=== PATIENT | female | born 1950 | race Caucasian/White ===

== ENCOUNTER 2022-01-14 09:14 | Observation (INO) ==
--- NOTE | 2021-12-20 10:28 | PAT Medication Instructions ---
Medication Instructions Date of Service December 20, 2021 Home Medications memantine 10 mg tablet 10 mg PO 2000 acetaminophen 325 mg capsule 325 mg PO QID PRN aspirin 81 mg tablet,delayed release (Adult Low Dose Aspirin) 81 mg PO 0800 azelastine 137 mcg (0.1 %) nasal spray aerosol 2 spray INTNAS 1999 biotin 2,500 mcg capsule 2,500 mcg PO 0800 cholecalciferol (vitamin D3) 50 mcg (2,000 unit) capsule 50 mcg PO 0800 cyanocobalamin (vitamin B-12) 1,000 mcg sublingual tablet 1,000 mcg SUBLINGUAL 0800 diclofenac sodium 1 % topical gel 4 g TOPICAL BID donepezil 10 mg tablet 10 mg PO 0800 fluticasone propionate 50 mcg/actuation nasal spray,suspension 1 spray INTRANASAL 0800 levothyroxine 100 mcg tablet 100 mcg PO 0630 albuterol sulfate 90 mcg/actuation aerosol inhaler (Ventolin HFA) 1 inh INHALATION QID PRN albuterol sulfate 90 mcg/actuation aerosol inhaler (Ventolin HFA) 2 puff INHALATION BID calcium carbonate 600 mg-vitamin D3 5 mcg (200 unit) tablet 1 tab PO 0800 citalopram 20 mg tablet (Celexa) 20 mg PO 0800 levocetirizine 5 mg tablet 5 mg PO 2000 pantoprazole 40 mg tablet,delayed release (Protonix) 40 mg PO 0730 STOP taking 24 hours before surgery diclofenac sodium 1 % topical gel 4 g TOPICAL BID DO NOT take the morning of surgery biotin 2,500 mcg capsule 2,500 mcg PO 0800 cholecalciferol (vitamin D3) 50 mcg (2,000 unit) capsule 50 mcg PO 0800 cyanocobalamin (vitamin B-12) 1,000 mcg sublingual tablet 1,000 mcg SUBLINGUAL 0800 calcium carbonate 600 mg-vitamin D3 5 mcg (200 unit) tablet 1 tab PO 0800 Take morning of surgery With a small sip of water, OTHERWISE NOTHING TO EAT OR DRINK AFTER MIDNIGHT: acetaminophen 325 mg capsule 325 mg PO QID PRN (if needed) aspirin 81 mg tablet,delayed release (Adult Low Dose Aspirin) 81 mg PO 0800 (continue as normal unless told otherwise by surgeon) donepezil 10 mg tablet 10 mg PO 0800 fluticasone propionate 50 mcg/actuation nasal spray,suspension 1 spray INTRANASAL 0800 levothyroxine 100 mcg tablet 100 mcg PO 0630 albuterol sulfate 90 mcg/actuation aerosol inhaler (Ventolin HFA) 1 inh INHALATION QID PRN (if needed) albuterol sulfate 90 mcg/actuation aerosol inhaler (Ventolin HFA) 2 puff INHALATION BID citalopram 20 mg tablet (Celexa) 20 mg PO 0800 pantoprazole 40 mg tablet,delayed release (Protonix) 40 mg PO 0730 Use rescue inhaler if needed; please bring with you to hospital day of surgery if possible Take evening before surgery memantine 10 mg tablet 10 mg PO 1999 acetaminophen 325 mg capsule 325 mg PO QID PRN (if needed) azelastine 137 mcg (0.1 %) nasal spray aerosol 2 spray INTNAS 1999 albuterol sulfate 90 mcg/actuation aerosol inhaler (Ventolin HFA) 1 inh INHALATION QID PRN (if needed) albuterol sulfate 90 mcg/actuation aerosol inhaler (Ventolin HFA) 2 puff INHALATION BID levocetirizine 5 mg tablet 5 mg PO 1999 Other Notes If you have any questions please call us at [phone] or [phone] or [phone] or [phone]
--- NOTE | 2021-12-20 12:07 | Anesthesiology Consultation ---
Date of Service December 20, 2021 Assessment & Plan (1) Encounter for pre-operative examination: - chronic microaspiration: follows with [facility] as below. - pulm 09/29/21 [facility]: "...Chronic cough: Cough likely multifactorial possibly related to upper airway cough syndrome and cough variant asthma. Symptoms are difficult to ascertain given her dementia and memory issues...did not cough during the visit...not had any ER visits or need for steroid tapers since I last saw her...continue with her current dosing of Breo and as needed albuterol. Continue fluticasone nasal spray for allergic rhinitis. Continue pantoprazole for GERD...Abnormal CT scan, chest: Multi lobar tree-in-bud opacities stable except for a new area in the right lower lobe...suspect these findings are likely related to chronic micro-aspiration. Aspiration precautions encouraged. We will repeat a CT chest in 6 months. Prior bronchoscopy without evidence of nontuberculous Mycobacterium infection. Raspy voice: Trial off Breo Ellipta for 3 days as inhaled corticosteroids can occasionally weaken voice. Encouraged rinsing her mouth after using all inhalers. Consider ENT evaluation if symptoms persist..." - Case discussed with Dr. Montaño who advised pt is acceptable risk to proceed with surgery and does not need additional evaluation or testing prior to surgery. - COVID screening: Per assessment on 12/20/2021: Travel screen negative, no known COVID-19 positive contacts or current COVID-19 related symptoms in past 2 weeks. Pt vaccinated. Surgeon arranging preop COVID testing, scheduled 01/12/2022. Awaiting results. Chart Review Chart Review: Acceptable Risk for Surgery and Patient seen in Pre Admission Testing Teaching & Discussion Pre-Anesthesia Teaching/Discussion Notes: Instructed NPO after midnight before surgery, except medications with 15 cc of water. Medication instructions provided according to the PAT guidelines. History Surgery Operation Date: 01/14/22 07:00 Proposed Procedures p Right Total Knee Arthroplasty - Ruy Lam DO Height/Weight Height: 5 ft 5 in Weight: 71.9 kg Allergies Allergy/AdvReac Type Severity Reaction Status Date / Time No Known Allergies Allergy Verified 12/20/21 07:30 Medications Home Medications Medication Instructions Recorded Confirmed Last Taken memantine 10 mg tablet 10 mg PO 199903/10/20 12/20/21 07/21/21 acetaminophen 325 mg capsule 325 mg PO QID PRN 04/01/21 12/20/21 07/21/21 aspirin 81 mg tablet,delayed [place] [address]04/01/21 12/20/21 07/21/21 release (Adult Low Dose Aspirin) azelastine 137 mcg (0.1 %) nasal 2 spray INTNAS 199907/13/21 12/20/21 07/21/21 spray aerosol biotin 2,500 mcg capsule 2,[place] [address]/13/21 12/20/21 07/13/21 cholecalciferol (vitamin D3) 50 [place] [address]07/13/21 12/20/21 07/21/21 mcg (2,000 unit) capsule cyanocobalamin (vitamin B-12) 1,000 mcg SUBLINGUAL 79907/13/21 12/20/21 07/21/21 1,000 mcg sublingual tablet diclofenac sodium 1 % topical gel 4 g TOPICAL BID 07/13/21 12/20/21 07/20/21 donepezil 10 mg tablet [place] 79907/13/21 12/20/21 07/21/21 fluticasone propionate 50 1 spray INTRANASAL 79907/13/21 12/20/21 07/21/21 mcg/actuation nasal spray,suspension levothyroxine 100 mcg tablet [place] [address]/13/21 12/20/21 07/21/21 albuterol sulfate 90 mcg/actuation 1 inh INHALATION QID PRN 12/20/21 12/20/21 Unknown aerosol inhaler (Ventolin HFA) albuterol sulfate 90 mcg/actuation 2 puff INHALATION BID 12/20/21 12/20/21 Unknown aerosol inhaler (Ventolin HFA) calcium carbonate 600 mg-vit[place] [address]12/20/21 12/20/21 Unknown D3 5 mcg (200 unit) tablet citalopram 20 mg tablet (Celexa) 20 [place] PO 79912/20/21 12/20/21 Unknown levocetirizine 5 mg tablet 5 mg PO 199912/20/21 12/20/21 Unknown pantoprazole 40 mg tablet,delayed 40 [place] [address]12/20/21 12/20/21 Unknown release (Protonix) Past Medical History Medical History (Updated 12/20/21 @ 12:29 by Sandrine Jackson PA-C) Abnormal CT scan, chest 09/03/21: Scattered multilobar bilateral distribution of relapsing and remitting subsegmental tree-in-bud nodules are redemonstrated. A small clu ster of nodules in the right lower lobe is new from prior measuring up to 7 mm. Decreased mucus plugging of the right middle lobe. Findings are again suggestive of a chronic infectious or inflammatory pneumonitis/bronchiolitis such as nontuberculosis mycobacterium-monitoring by [facility] Chronic cough follows with [facility] Dementia vascular suspected by neurologist. alert and oriented per son. short term memory loss. Depression Esophageal dysmotility Falls multiple. uses walker to ambulate currenty GERD (gastroesophageal reflux disease) Hx of thyroid cancer Hypothyroidism Lung nodule Osteopenia DEXA 06/01/2020- T score( - 2.4) Raspy voice Sleep apnea hx - no machine currently. Patient denies h/o stroke, seizures, heart attack, heart failure, DM, HTN, blood clots or blood transfusions. Exercise / Class Metabolic Activity III < 4 Walking/Shop/Light housework (ambulates with rolling walker, ) Past Family History Family History Other No family history of adverse response to anesthesia Denies family history of Ovarian cancer Prostate cancer Myocardial infarction Breast cancer Lung cancer Colorectal cancer Past Surgical History Surgical History History of bronchoscopy History of colonoscopy History of esophagogastroduodenoscopy (EGD) History of facelift S/P hysterectomy S/P thyroidectomy total Past Anesthesia History No Hx of Anesthesia Complications and No Family Hx of Anesthesia Complications History of PONV No Hx of PONV and No Hx of Motion Sickness Social History Smoking Status: Never smoker Do You Dip or Chew Tobacco: No Hx Alcohol Use: Yes (hx heavy alcohol use "many years ago"-denies current use) Hx Substance Use: No substance use type: does not use Review of Systems Patient denies chest pain, shortness of breath, dyspnea on exertion, reflux, fever, chills, wheezing, or palpitations. Physical Exam Vital Signs Vitals BP 112/72 P 61 TEMP 98.7 SP02 98% on RA RESP 17 Physical Full cervical extension range of motion without pain TMD 3.5 finger breaths Mallampati Score 3 Dentition: intact, denies missing, chipped or loose teeth; denies Lungs: normal respiratory effort. Clear throughout to auscultation, no adventitious breath sounds Cardiac: regular rate and rhythm, no murmurs noted Carotid arteries: negative bruit bilat Lab Results Anesthesia Preop Results Results Anesthesia Widget: WBC 8.74 K/uL (4.8-10.8) 12/20/21 Hgb 12.9 g/dL (12.0-16.0) 12/20/21 Hct 40.1 % (37-47) 12/20/21 Plt 374 K/uL (130-400) 12/20/21 Na 140 mmol/L (136-145) 12/08/21 K 3.6 mmol/L (3.5-5.1) 12/08/21 Cl 105 mmol/L (98-107) 12/08/21 CO2 25 mmol/L (21-32) 12/08/21 BUN 13 mg/dl (6-23) 12/08/21 Creat 1.00 mg/dl (0.6-1.2) 12/08/21 Glucose Level 111 mg/dl (70-99(Fasting)) H 12/08/21 PT 10.8 Seconds (9.0-12.0) 12/20/21 PTT 25.7 Seconds (21.0-31.0) 12/20/21 INR 1.0 (0.9-1.1) 12/20/21 TSH 0.541 uIu/ml (0.300-4.500) 12/08/21 Blood Type O Positive 12/20/21 Antibody Screen NEGATIVE 12/20/21 Testing Electrocardiogram Date: 12/20/[address] 09/03/21 IMPRESSION: 1. Scattered multilobar bilateral distribution of relapsing and remitting subsegmental tree-in-bud nodules are redemonstrated. A small cluster of nodules in the right lower lobe is new from prior measuring up to 7 mm. Decreased mucus plugging of the right middle lobe. Findings are again suggestive of a chronic infectious or inflammatory pneumonitis/bronchiolitis such as nontuberculosis mycobacterium. 2. Prior granulomatous disease. 3. No thoracic lymphadenopathy. 4. Tiny hiatal hernia.
--- NOTE | 2022-01-13 07:36 | History & Physical Report ---
Date of Service January 13, 2022 Assessment & Plan (1) Primary osteoarthritis of right knee: We will proceed with a right total knee arthroplasty. Postoperatively she will be started on aspirin for DVT prophylaxis and kept overnight in the hospital for postoperative medical management. She plans to go to [place] at discharge. (2) Right knee DJD: History of Present Illness Chief Complaint: Osteoarthritis of the right knee . Primary Care Provider: [place] [facility] Dee Dee is a pleasant 71-year-old female who has been dealing with dementia. Her son takes good care of her. She currently lives at [place]. She has been dealing with chronic increasing right knee pain. She is downgraded to a wheeled walker because of it. I have tried extensive conservative treatment including multiple cortisone injections and recent viscosupplementation. Unfortunately, she is still struggling with her knee. After failing conservative treatment, and after long discussions with the family, she has elected to proceed with a right total knee arthroplasty. Allergies Allergy/AdvReac Type Severity Reaction Status Date / Time No Known Allergies Allergy Verified 12/20/21 07:30 Home Medications Medication Instructions Recorded Confirmed Type memantine 10 mg tablet 10 mg PO 199903/10/20 12/20/21 History acetaminophen 325 mg capsule 325 mg PO QID PRN 04/01/21 12/20/21 History aspirin 81 mg tablet,delayed 81 [place] 79904/01/21 12/20/21 History release (Adult Low Dose Aspirin) azelastine 137 mcg (0.1 %) nasal 2 spray INTNAS 199907/13/21 12/20/21 History spray aerosol biotin 2,500 mcg capsule 2,[place] [address]07/13/21 12/20/21 History cholecalciferol (vitamin D3) 50 [place] 79907/13/21 12/20/21 History mcg (2,000 unit) capsule cyanocobalamin (vitamin B-12) 1,000 mcg SUBLINGUAL 79907/13/21 12/20/21 History 1,000 mcg sublingual tablet diclofenac sodium 1 % topical gel 4 g TOPICAL BID 07/13/21 12/20/21 History donepezil 10 mg tablet 10 [place] 79907/13/21 12/20/21 History fluticasone propionate 50 1 spray INTRANASAL 79907/13/21 12/20/21 History mcg/actuation nasal spray,suspension levothyroxine 100 mcg tablet [place] [address]/13/21 12/20/21 History albuterol sulfate 90 mcg/actuation 1 inh INHALATION QID PRN 12/20/21 12/20/21 History aerosol inhaler (Ventolin HFA) albuterol sulfate 90 mcg/actuation 2 puff INHALATION BID 12/20/21 12/20/21 History aerosol inhaler (Ventolin HFA) calcium carbonate 600 mg-vitamin 1 [place] 79912/20/21 12/20/21 History D3 5 mcg (200 unit) tablet citalopram 20 mg tablet (Celexa) 20 [place] PO 79912/20/21 12/20/21 History levocetirizine 5 mg tablet 5 mg PO 199912/20/21 12/20/21 History pantoprazole 40 mg tablet,delayed 40 [place] 72912/20/21 12/20/21 History release (Protonix) Past Med/Surg History Medical History Abnormal CT scan, chest 09/03/21: Scattered multilobar bilateral distribution of relapsing and remitting subsegmental tree-in-bud nodules are redemonstrated. A small cluster of nodules in the right lower lobe is new from prior measuring up to 7 mm. Decreased mucus plugging of the right middle lobe. Findings are again suggestive of a chronic infectious or inflammatory pneumonitis/bronchiolitis such as nontuberculosis mycobacterium-monitoring by [facility] Chronic cough follows with [facility] Dementia vascular suspected by neurologist. alert and oriented per son. short term memory loss. Depression Esophageal dysmotility Falls multiple. uses walker to ambulate currenty GERD (gastroesophageal reflux disease) Hx of thyroid cancer Hypothyroidism Lung nodule Osteopenia DEXA 06/01/2020- T score( - 2.4) Raspy voice Sleep apnea hx - no machine currently. Surgical History History of bronchoscopy History of colonoscopy History of esophagogastroduodenoscopy (EGD) History of facelift S/P hysterectomy S/P thyroidectomy total Family History Other No family history of adverse response to anesthesia Denies family history of Ovarian cancer Prostate cancer Myocardial infarction Breast cancer Lung cancer Colorectal cancer Social History Smoking Status: Never smoker Second Hand Exposure: Yes (hx); Hx Alcohol Use: Yes (hx heavy alcohol use "many years ago"-denies current use) Hx Substance Use: No Preferred Language: Russian Communication Ability: Effective Visual Impairment: No Limitations Hearing Ability: Normal Project Eng Required: No Beliefs That Will Affect Care: None marital status: Single Current Living Situation: Personal Care Facility Current Living Situation Comment: [facility] 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 Physical Exam On physical examination the right knee, she has slight varus deformity. She has range of motion of 0 to 120 degrees. No effusion. . Constitutional WD/WN, vitals as above Eyes PERRL, conjunctivae normal, anicteric sclerae ENMT external ear and nose normal, oropharynx normal Neck trachea midline, no thyromegaly Respiratory normal respiratory effort Cardiovascular RRR, no murmur, no edema Gastrointestinal (Abdomen) normal bowel sounds, soft, nontender, no hepatosplenomegaly Psychiatric A+Ox3, euthymic affect Results & Data Results & Data Laboratory Results . Diagnostic Findings X-rays of the right knee show advanced osteoarthritis with joint space narrowing, osteophyte formation, and [id number] articulation . PG Care Time/CCT Total # of Minutes Spent Total Time Spent with Patient: Total time spent is greater than 50% in coordination of care (as documented) at patient's floor/unit and/or counseling patient: Coding Level of Care Code None Diagnoses Primary osteoarthritis of right knee M17.11 Right knee DJD M17.11
[~2022-01-14 09:14] MED LIST: ACETAMINOPHEN 500 MG TAB PO SCH; BUPIVACAINE 0.5 % 5 MG/1 ML PF 10ML VIAL ONE; FAMOTIDINE 20 MG TAB PO SCH; GABAPENTIN 300 MG CAP PO SCH; Ketorolac (*for OR use only*) 30 MG, dexAMETHasone 4 MG, KETAMINE HCL (**OR use only) 1... INFIL SCH; LR 500ML BOLUS, THEN 15ML/HR IV SCH; LR 60ML/HR IV SCH; ROPIVACAINE 0.5% 5 MG/ML 30 ML VIAL ONE; TRANEXAMIC ACID 1,000 MG **IV Intra-op IV SCH; TRANEXAMIC ACID 1,000 MG **IV Pre-op IV SCH; ceFAZolin 1000MG 1,000 MG/7.5 ML SYR IV SCH; dexAMETHasone 4 MG TAB PO SCH
--- NOTE | 2022-01-14 10:27 | History & Physical Bridge Note ---
Date of Service January 14, 2022 History & Physical Bridge Note I have examined the patient, reviewed the History & Physical and in the interval since the performance of the History & Physical I have noted the following changes of clinical significance: no changes noted
[2022-01-14] MEDS ORDERED: fentaNYL citrate 100 MCG/2 ML VIAL IV PRN (10:42)
[2022-01-14] MEDS ORDERED: ePHEDrine sulfate 50 MG/ML AMP IV PRN (10:42)
[2022-01-14] MEDS ORDERED: ONDANSETRON INJ 2 MG/ML 2 ML VIAL IV PRN ×2 (10:42→14:45)
[2022-01-14] MEDS ORDERED: ATROPINE SULFATE 0.1 MG/ML 10ML SYR IV PRN (10:42)
[2022-01-14] MEDS ORDERED: ORTHO JOINT ANESTHETIC ONE (10:55)
[2022-01-14] MEDS ORDERED: fentaNYL citrate 100 MCG/2 ML VIAL ONE (11:04)
[2022-01-14] MEDS ORDERED: ONDANSETRON INJ 2 MG/ML 2 ML VIAL ONE (11:04)
[2022-01-14] MEDS ORDERED: PROPOFOL IV EMULSION 10 MG/ML 20 ML VIAL IV ONE ×2 (11:04→11:05)
--- NOTE | 2022-01-14 12:44 | Operative Report ---
PG Post Operative Report Pre & Post Diagnosis Operation Date: 01/14/22 11:40 Pre-Op Diagnosis: Right Knee Degenerative Joint Disease Post-Op Diagnosis: Right Knee Degenerative Joint Disease I identified the patient and participated in the time-out.: Yes Procedure Operation Date: 01/14/22 11:40 Actual Procedures p Right Total Knee Arthroplasty(Right) - Ruy Lam DO Surgeon Ruy Lam DO Custodian Blood Bank Ruy De La Cruz PAC Estimated Blood Loss 20 Findings Consistent with Post-Op Diagnosis Specimens Right femoral and tibial bone Complications none Disposition Disposition: Recovery Room Description of Procedure Implants used: I used a Rebeca Persona total knee arthroplasty system with a size 7 narrow femur, D tibia, 28 oval patella, and a size 10 medial congruent polyethylene bearing. All components were cemented in place with Biomet cement. Sun arrived [facility] for the above procedure. She was seen in the preoperative holding area and the operative extremity was identified and signed. She was given a preoperative antibiotic, TXA, a spinal anesthetic and an adductor nerve block. She was taken back to the operating room and laid on the table in supine position. She was given basic sedation. The operative knee was then prepped and draped in sterile fashion. A timeout was done, and the patient and the operative extremity was properly identified. A midline incision was made directly over the patella. Dissection was taken down to the extensor mechanism. A subvastus arthrotomy was used. The medial retinaculum was released and the fat pad was mostly excised. The knee was flexed and the ACL, PCL, and meniscus were removed. A drill was sent down the center of the femoral canal followed by an intramedullary thalia. Off that thalia a distal femoral cutting block was placed. 9 mm was resected off the distal femur at 5 of valgus. A posterior referencing AP sizing guide was then placed on the distal femur. The femur measured to be a size 7. 2 drill holes were placed in 3 of external rotation. A 4-in-1 cutting block was then impacted into place. Anterior, posterior, and chamfer cuts were then made. The proximal tibia was then exposed. An external tibial alignment guide was placed. A tibial cut guide was then anchored in place and the proximal tibia was then resected. The posterior aspect of the knee was then opened up and any additional meniscus fragments and osteophytes were removed. The tibia measured to be a size D. The tibial plate was then placed in the appropriate rotation and the tibia was drilled and punched. Trial components were then placed. I used a size 10 medial congruent polyethylene insert. The knee was brought through a full range of motion and felt to be stable. The peg holes for the femoral component were then drilled. The patella was then everted and 9 mm was resected off the posterior aspect of the patella. The patella measured to be a size 28 oval. 3 peg holes were then drilled. A trial patella was placed. The knee was once again brought through a full range of motion and felt to be stable. Trial components were then removed. The surrounding soft tissues were injected with 100 cc of an orthopedic pain control cocktail. All components were then cemented into place with Biomet cement. The final polyethylene insert was then snapped into place. Once cement was dry the tourniquet was deflated. Hemostasis was obtained. A dilute betadyne lavage was then done for 3 minutes. The joint was then irrigated with normal saline solution. The subvastus arthrotomy was then closed with #1 Vicryl suture. The skin was closed with 2-0 Vicryl, 3-0V lock suture, and rosana. A soft compressive dressing was placed. She was then transferred to a hospital bed and taken to the postanesthesia care unit in stable condition. She tolerated the procedure well. Ruy De La Cruz PA-C, was present for the entire procedure. He was critical for patient positioning, prepping, draping, retraction exposure, wound closure and application of sterile dressing. I attest to the content of the Intraoperative Record and any orders documented therein. Any exceptions are noted below.
--- NOTE | 2022-01-14 13:44 | XRay Report ---
RIGHT KNEE 2 VIEWS History: Right total knee arthroplasty. Degenerative arthritis. Postop. FINDINGS: The patient is status post a right total knee arthroplasty. The hardware is intact. No frac ture or dislocation. Skin rosana are in place. IMPRESSION: Right total knee arthroplasty. No evidence for hardware complication. ACT 112: Negative or not required by law. Electronically signed by: Solis Marquez M.D. 01/14/2022 1:42 PM
--- NOTE | 2022-01-14 14:20 | Anesthesiology Progress Note ---
Date of Service January 14, 2022 Anesthesia Post Procedure Vital Signs Vital Signs: Temp Pulse Pulse Resp BP Pulse Ox 01/14/22 14:10 60 20 142/71 H 96 01/14/22 14:00 57 L 12 133/68 97 01/14/22 13:50 57 L 14 127/64 97 01/14/22 13:40 57 L 13 130/66 96 01/14/22 13:30 58 L 14 127/65 97 01/14/22 13:20 58 L 20 115/65 96 01/14/22 13:11 97.0 F L 60 14 123/62 95 01/14/22 09:55 98.2 F 64 16 140/73 95 Transfer of Care Handoff Completed per policy Notes Mental Status: alert / awake / arousable and participated in evaluation Patient Amnestic to Procedure: Yes Nausea / Vomiting: adequately controlled Pain: adequately controlled Airway Patency, RR, SpO2: stable & adequate BP & HR: stable & adequate Hydration State: stable & adequate Neuraxial Anesthesia: was administered and sensory block is resolving Anesthetic Complications: no major complications apparent and Pt Satisfied with anesthetic care
[2022-01-14] MEDS ORDERED: bisacodyL 10 MG SUPP PR PRN (14:45)
[2022-01-14] MEDS ORDERED: HYDROmorphone INJ 0.5 MG/0.5 ML SYR IV PRN (14:45)
[2022-01-14] MEDS ORDERED: ALBUTEROL HFA 8 GM INHALER INH PRN (14:45)
[2022-01-14] MEDS ORDERED: METOCLOPRAMIDE HCL INJ 5 MG/ML 2 ML VIAL IV PRN (14:45)
[2022-01-14] MEDS ORDERED: NALOXONE HCL 0.4 MG/1 ML VIAL/CARP IV PRN (14:45)
[2022-01-14] MEDS ORDERED: MAGNESIUM HYDROXIDE SUSP 30 ML UDC PO PRN (14:45)
[2022-01-14] MEDS: SODIUM CHLORIDE 0.9% 1000ML 1,000 ML IV SCH (15:57)
[2022-01-14] MEDS: KETOROLAC TROMETHAMINE 15 MG/ML VIAL IV SCH ×2 (15:57→20:55)
[2022-01-14] MEDS: ACETAMINOPHEN 500 MG TAB PO SCH ×2 (15:57→22:17)
[2022-01-14] MEDS: ceFAZolin 2000MG 2,000 MG/15 ML SYR IV SCH (18:10)
[2022-01-14] MEDS: ALBUTEROL HFA 8 GM INHALER INH SCH (19:32)
[2022-01-14] MEDS: MEMANTINE HCL 10 MG TAB PO SCH (20:10)
[2022-01-14] MEDS: AZELASTINE HCL 0.1% NASAL 200 SPRAYS/27,400 MCG BTL SCH (20:10)
[2022-01-14] MEDS: DOCUSATE SODIUM 100 MG CAP PO SCH (21:55)
[2022-01-14] MEDS: SENNA 8.6 MG TAB PO SCH (21:55)
[2022-01-14] MEDS: ASPIRIN 81 MG ECTAB PO SCH (21:55)
[2022-01-15] MEDS: SODIUM CHLORIDE 0.9% 1000ML 1,000 ML IV SCH (01:16)
[2022-01-15] MEDS: KETOROLAC TROMETHAMINE 15 MG/ML VIAL IV SCH ×4 (02:31→21:02)
[2022-01-15] MEDS: ceFAZolin 2000MG 2,000 MG/15 ML SYR IV SCH (02:31)
[2022-01-15] MEDS: ACETAMINOPHEN 500 MG TAB PO SCH ×3 (06:50→21:00)
[2022-01-15] MEDS: LEVOTHYROXINE SODIUM 100 MCG TABLET PO SCH (06:50)
[2022-01-15] MEDS: ALBUTEROL HFA 8 GM INHALER INH SCH ×2 (07:44→19:32)
[2022-01-15] MEDS ORDERED: dexAMETHasone 4 MG TAB PO SCH (08:00)
--- NOTE | 2022-01-15 09:14 | Orthopedic Progress Note ---
Date of Service January 15, 2022 Assessment & Plan (1) Status post right knee replacement: Plan on discharge to [place] Continue with YASMANY stockings and aspirin BID Ambulation as tolerated Follow up in office 2-3 weeks post op for suture removal and evaluation Subjective Dee Dee is a 71 y/o female POD#1 for right total knee arthroplasty. She has minimal pain, comfortable at bedside. She has been up and ambulatory to the bathroom with the use of a walker. She continues to wear YASMANY stockings as directed. We will plan on discharge to [facility] today. Review of Systems All systems reviewed & are unremarkable except as noted in HPI & below. Physical Exam Incision clean and dry. No drainaige. Neurovascularly intact. Results & Data Results & Data Laboratory Results . Diagnostic Findings . PG Care Time/CCT Total # of Minutes Spent Total Time Spent with Patient: Total time spent is greater than 50% in coordination of care (as documented) at patient's floor/unit and/or counseling patient: Coding Level of Care Code 98712 Post Operative Follow-Up Diagnoses Status post right knee replacement Z96.651
[2022-01-15] MEDS: CITALOPRAM 20 MG TAB PO SCH (09:53)
[2022-01-15] MEDS: PANTOprazole 40 MG TAB PO SCH (09:53)
[2022-01-15] MEDS: ASPIRIN 81 MG ECTAB PO SCH ×2 (09:54→21:01)
[2022-01-15] MEDS: DONEPEZIL HCL 10 MG TAB PO SCH (09:54)
[2022-01-15] MEDS: DOCUSATE SODIUM 100 MG CAP PO SCH ×2 (09:54→20:59)
[2022-01-15] MEDS: FLUTICASONE PROPIONATE NA SPR 16 GM BTL SCH (09:54)
[2022-01-15] MEDS: MULTIVITAMIN TAB PO SCH (09:55)
[2022-01-15] MEDS: oxyCODONE HCL IR 5 MG TAB (IMMEDIATE RELEASE) PO PRN (18:32)
[2022-01-15] MEDS: AZELASTINE HCL 0.1% NASAL 200 SPRAYS/27,400 MCG BTL SCH (20:59)
[2022-01-15] MEDS: MEMANTINE HCL 10 MG TAB PO SCH (21:00)
[2022-01-15] MEDS: SENNA 8.6 MG TAB PO SCH (21:01)
[2022-01-16] MEDS: KETOROLAC TROMETHAMINE 15 MG/ML VIAL IV SCH ×2 (02:38→07:54)
[2022-01-16] MEDS: LEVOTHYROXINE SODIUM 100 MCG TABLET PO SCH (05:35)
[2022-01-16] MEDS: ACETAMINOPHEN 500 MG TAB PO SCH ×2 (05:36→13:58)
[2022-01-16] MEDS: ALBUTEROL HFA 8 GM INHALER INH SCH (07:43)
[2022-01-16] MEDS: DONEPEZIL HCL 10 MG TAB PO SCH (07:54)
[2022-01-16] MEDS: PANTOprazole 40 MG TAB PO SCH (07:54)
[2022-01-16] MEDS: CITALOPRAM 20 MG TAB PO SCH (07:54)
[2022-01-16] MEDS: MULTIVITAMIN TAB PO SCH (07:54)
[2022-01-16] MEDS: FLUTICASONE PROPIONATE NA SPR 16 GM BTL SCH (07:55)
[2022-01-16] MEDS: ASPIRIN 81 MG ECTAB PO SCH (07:55)
[2022-01-16] MEDS: DOCUSATE SODIUM 100 MG CAP PO SCH (07:55)
[2022-01-16] MEDS: oxyCODONE HCL IR 5 MG TAB (IMMEDIATE RELEASE) PO PRN (13:58)
--- NOTE | 2022-01-16 14:25 | Orthopedic Progress Note ---
Date of Service January 16, 2022 Assessment & Plan (1) Status post right knee replacement: No issues on POD2 s/p R TKA Plan on discharge to [facility] when authorized. Continue with YASMANY stockings and aspirin BID Ambulation as tolerated Follow up in office 2-3 weeks post op for suture removal and evaluation Subjective No issues. Tired of sitting still. Nursing present - reports some memory issues at baseline. PT worked with her. No issues. Review of Systems All systems reviewed & are unremarkable except as noted in HPI & below. Physical Exam Could not remember which knee was done - though both RLE: dressing disheveled. Wound well approx, clean and dry. Spotting on abd - dry. Dressing reapplied. DNVI. Able to perform SLR with no lag while dressing. Constitutional WD/WN, vitals as above no acute distress and not intoxicated appearing Respiratory normal respiratory effort; no labored breathing Cardiovascular Extremities: normal capillary refill Results & Data Results & Data Laboratory Results . Diagnostic Findings . PG Care Time/CCT Total # of Minutes Spent Total Time Spent with Patient: Total time spent is greater than 50% in coordination of care (as documented) at patient's floor/unit and/or counseling patient: Coding Level of Care Code 58618 Post Operative Follow-Up Diagnoses Status post right knee replacement Z96.651
--- NOTE | 2022-01-17 17:21 | Discharge Summary ---
Date of Service January 17, 2022 Admission HPI (Per Admitting) Dee Dee is a pleasant 71-year-old female who has been dealing with dementia. Her son takes good care of her. She currently lives at [facility]. She has been dealing with chronic increasing right knee pain. She is downgraded to a wheeled walker because of it. I have tried extensive conservative treatment including multiple cortisone injections and recent viscosupplementation. Unfortunately, she is still struggling with her knee. After failing conservative treatment, and after long discussions with the family, she has elected to proceed with a right total knee arthroplasty. Admission Exam (Per Admitting) On physical examination the right knee, she has slight varus deformity. She has range of motion of 0 to 120 degrees. No effusion. . Principal Diagnosis Same as "Discharge Diagnosis" noted below under Discharge Instructions. Discharge Exam Could not remember which knee was done - though both RLE: dressing disheveled. Wound well approx, clean and dry. Spotting on abd - dry. Dressing reapplied. DNVI. Able to perform SLR with no lag while dressing. Discharge Data Procedures Performed Operation Date: 01/14/22 11:40 Actual Procedures p Right Total Knee Arthroplasty(Right) - Ruy Lam DO Ordered Studies 01/14/22 05:00 US - OR guided needle placemen Routine Hospital Course (1) Status post right knee replacement: On January 14, 2022 Sun arrived at [facility] and underwent a right knee replacement without complication. She had a spinal anesthetic. Postoperatively she was started on aspirin and transferred to the general orthopedic floors. Her hospital course was uneventful. On postop day #1, her v ital signs were stable and her pain was well controlled. She was able to participate well with physical therapy doing ambulation and range of motion exercises. On postop day #2, she continued to do well. She was then transferred to a rehab facility. She will follow-up with orthopedics in 2 weeks. PG Care Time/CCT Total # of Minutes Spent Total Time Spent with Patient: Total time spent is greater than 50% in coordination of care (as documented) at patient's floor/unit and/or counseling patient: Discharge Plan Discharge Items Patient Disposition: Transfer [facility] Reason For Visit: DJD Right Knee Discharge Diagnosis: Right knee replacement Activity: Per Instructions section Non-emergency contact: Surgeon Call non-emergency contact if: your wound has increased redness and your wound has increased drainage Follow-up/Referrals: Ruy Lam DO [Physician] - [facility] - Diet: Regular Addtl Attending Provider Instructions: Activity and Therapy Recommendations: * If you are using [facility] then therapy will be provided at your home until they feel you have accomplished all of your goals. * If you are using [facility] then Physical Therapy will be provided until they feel you are ready to start Outpatient Physical Therapy. * If you are not using home therapy then Outpatient Physical Therapy should start about 3-5 days from your day of surgery. Therapy will last about 6-10 weeks * It is important not to put a pillow under your knee when you are relaxing or sleeping. It is just as important to make sure you are getting your knee perfectly straight as it is to regain your knee bend. * You were shown a series of exercises in the hospital. Do these exercises three times each day including the exercises you were shown in physical therapy. * Get up and walk several times each day. For the first four weeks, try not to stand or walk for more than one hour at a time. If you do stand or walk for more than one hour, you will not hurt anything, but your leg will likely swell. * As you feel comfortable, you may change from the walker or crutches to a cane and then to independent walking. Medications: * Narcotic You will likely be sent home from the hospital with a prescription for the narcotic pain medication that worked best throughout your stay. * Aspirin Most patients will be required to take Aspirin 81mg twice a day for 6 weeks after surgery. This is obtained [id number] and a prescription is not necessary. * Other medications may be prescribed for specific circumstances. If you have any questions, please call the office at . * Resume previous home medications unless otherwise instructed TEDs/Elastic Stockings: The white elastic stockings help limit swelling and prevent blood clots from forming in your legs.~ The more you wear them, the more they work. Wear them for six weeks. Dressing Care: The dressing can be changed after physical therapy on postop day #1. Daily dry dressing changes for a few days, especially if the incision is still draining some. If the incision is not draining then you may leave the rosana open to air. If there is a little bit of drainage or if the rosana are getting stuck on your clothing then cover the incision with a dry dressing. The rosana will be removed at your 2 week follow-up appointment. Showering: You may shower 5 days from the day of surgery as long as the incision is no longer draining. You may shower with the rosana exposed. Let soapy water run over the rosana and pat them dry. Do not scrub or soak the incision. Things To Watch For: * Drainage from the incision site that occurs more than one week after your surgery. * Increased redness at the incision site. * Fever above 102 degrees Fahrenheit. * Unusual chest pain or shortness of breath. * Call [facility] at with any of the above problems Follow-Up Visit: Follow-up with Dr. Lam's PA (Ruy De La Cruz) 2-3 weeks after your day of surgery. He will remove your rosana and answer any questions. If you have any additional questions or concerns, Dr Lam is usually in the office at the same time and will be available An appointment was probably scheduled when you signed-up for surgery in the office. If you have any questions call Office Instructions: More detailed instructions as well as Frequently Asked Questions were provided in a folder by our office when you signed-up for surgery. Please review these instructions when you get home. If you have any further questions or concerns, please feel free to call the office at [phone] Pending Studies at Discharge: No Stand-Alone Forms: [facility], Smoking Cessation Skilled Items Patient informed of condition?: Yes DNR: No Discharge Level of Care: Acute rehab Communicable Disease: No Discharge Prognosis: Stable Lines: None Urinary Catheter: No Medications and DC Order Prescriptions: New aspirin 81 mg Tablet,Delayed Release (Dr/Ec) 81 mg PO BID 42 Days Qty: 84 RF: 0 oxycodone-acetaminophen 5-325 mg tablet 1 tab PO Q6H PRN (Reason: pain) Qty: 30 RF: 0 Continued aspirin [Adult Low Dose Aspirin] 81 mg tablet,delayed release (DR/EC) 81 mg PO 0800 RF: 0 acetaminophen 325 mg capsule 325 mg PO QID PRN (Reason: pain) RF: 0 memantine 10 mg tablet 10 mg PO 1999 RF: 0 calcium carbonate-vitamin D3 600 mg-5 mcg (200 unit) Tablet 1 tab PO 08 RF: 0 citalopram [Celexa] 20 mg Tablet 20 mg PO 0800 RF: 0 albuterol sulfate [Ventolin HFA] 90 mcg/actuation Hfa Aerosol Inhaler 1 inh INHALATION QID PRN (Reason: sob) RF: 0 pantoprazole [Protonix] 40 mg tablet,delayed release (DR/EC) 40 mg PO 0730 RF: 0 albuterol sulfate [Ventolin HFA] 90 mcg/actuation HFA aerosol inhaler 2 puff inhalation BID RF: 0 levocetirizine 5 mg tablet 5 mg PO 1999 RF: 0 cyanocobalamin (vitamin B-12) 1,000 mcg Tablet, Sublingual 1,000 mcg SUBLINGUAL 799 RF: 0 fluticasone propionate 50 mcg/actuation [place],Suspension 1 spray INTRANASAL 799 RF: 0 diclofenac sodium 1 % Gel 4 g TOPICAL BID RF: 0 donepezil 10 mg tablet 10 mg PO 08 RF: 0 levothyroxine 100 mcg tablet 100 mcg PO 0630 RF: 0 azelastine 137 mcg (0.1 %) aerosol,spray 2 spray INT1999 RF: 0 biotin 2,500 mcg capsule 2,500 mcg PO 08 RF: 0 cholecalciferol (vitamin D3) 50 mcg (2,000 unit) capsule 50 mcg PO 0800 RF: 0 Discharge Orders: Discharge Order (Routine); Ordered 01/16/22 Ordered By: Tr Tong Admission Data Admit Date/Time: 01/15/22 12:47 Attending Provider: Ruy Lam Admit Provider: Ruy Lam Primary Care Provider: Kamila willsonTebbetts Other Interventions: Discharge Summary Assessment (RN) Last Done: 01/16/22 15:09
== END 2022-01-16 16:18 | DRG 470 ==
LOC: ASU 09:14 → 3E 09:14
DX: G89.29 Other chronic pain; M85.9 Disorder of bone density and structure, unspecified; Z20.822 Contact with and (suspected) exposure to COVID-19; G47.33 Obstructive sleep apnea (adult) (pediatric); F03.90 Unspecified dementia, unspecified severity, without behavioral disturbance, psychotic disturbance, mood disturbance, and anxiety; Z90.710 Acquired absence of both cervix and uterus; Z79.890 Hormone replacement therapy; E89.0 Postprocedural hypothyroidism; R29.6 Repeated falls; Z85.850 Personal history of malignant neoplasm of thyroid; M17.11 Unilateral primary osteoarthritis, right knee; K21.9 Gastro-esophageal reflux disease without esophagitis; Z79.82 Long term (current) use of aspirin; F32.A Depression, unspecified